=== PATIENT | female | born 1945 | race Caucasian/White ===

== ENCOUNTER → 2016-10-06 | Outpatient (CLI) | payer BC ==
[~2016-10-06] MED LIST: ONDA4TAB65 PO; OXYC-57 PO; PRAV20TA PO
[2016-10-06 11:10] LABS: BASO % 0.2 %; BASO ABS # 0.01 K/uL (0-0.2); COMPLETE YES; EOS % 0.4 %; HEMATOCRIT 47.3 % (37-47); LYMPH % 25.8 %; LYMPH ABS # 1.32 K/uL (1.2-3.4); MEAN CELL VOLUME 88.1 fL (80-100); MEAN CORPUSCULAR HEMOGLOBIN 30.4 pg (25-34); MEAN CORPUSCULAR HGB CONC 34.5 g/dl (32-36); MEAN PLATELET VOLUME 9.2 fL (7.4-10.4); MONO % 7.2 %; NEUT % 66.4 %; PLATELET COUNT 228 K/uL (130-400); RED BLOOD COUNT 5.37 M/uL (4.2-5.4); WHITE BLOOD COUNT 5.11 K/uL (4.8-10.8)
--- NOTE | 2016-10-06 11:17 | DIAGNOSTIC IMAGING REPORT ---
CHEST 2 VIEWS ROUTINE CLINICAL HISTORY: Preoperative chest. Nephrolithiasis. COMPARISON STUDY: No previous studies for comparison. FINDINGS: The cardiac and mediastinal contours are normal. There is no evidence of focal pulmonary consolidation. There is no evidence of failure. No pleural effusions are visualized.[ There is minimal basilar linear atelectasis/scarring. IMPRESSION: No active disease in the chest. Electronically signed by: Wilfredo Engle M.D. 10/06/2016 11:15 AM
[2016-10-06 12:08] LABS: BLOOD UREA NITROGEN 10 mg/dl (7-18); BUN/CREATININE RATIO 12.4 (10-20); CALCIUM 9.1 mg/dl (8.5-10.1); CARBON DIOXIDE 26 mmol/L (21-32); CHLORIDE 108 mmol/L (98-107); GLUCOSE 89 mg/dl (70-99); POTASSIUM 4.2 mmol/L (3.5-5.1); SODIUM 142 mmol/L (136-145)
== END | disposition home or self-care (01) ==
LOC: C.CPL 10:37
PROVIDERS: ATTEND Urology
DX: N20.0 Calculus of kidney (principal)

== ENCOUNTER → 2016-10-15 | Day surgery (SDC) | payer BC ==
[2016-10-13 09:17] VITALS: Ht 157.5 cm; Wt 68.2 kg
[~2016-10-15] VITALS: Ht 157.5 cm; Wt 68.2 kg
[~2016-10-15] MED LIST changes: +ATROPINE SULFATE 0.1 MG/ML 5ML SYR IV PRN; +CIPROFLOXACIN 400MG / D5W IV SCH; +DEXAMETHASONE SOD INJ 4 MG/ML VIAL ONE; +EpHEDrine SULFATE INJ 50 MG/ML AMP IV PRN; +FENTANYL CITRATE INJ 50 MCG/1 ML 2 ML VIAL IV PRN; +FENTANYL CITRATE INJ 50 MCG/1 ML 2 ML VIAL ONE; +LACTATED RINGER'S 1000ML 1,000 ML IV SCH; +LIDOCAINE HCL 2% 2 ML VIAL (20MG/ML) ONE; +ONDANSETRON INJ 2 MG/ML 2 ML VIAL IV PRN; +ONDANSETRON INJ 2 MG/ML 2 ML VIAL ONE; +OXYCODONE/ACETAMINOPHEN 5-325 TAB PO PRN; +PROPOFOL IV EMULSION 10 MG/ML 20 ML VIAL IV ONE
--- NOTE | 2016-10-15 11:24 | DIAGNOSTIC IMAGING REPORT ---
[facility] CLINICAL HISTORY: N20.0 Nephrolithiasis COMPARISON STUDY: 11/22/2015 FINDINGS: There is no pathologic bowel dilatation. There are 2 calcifications project over the lower pole the right kidney, the largest of which measures 6 mm in length. There are 2 calcifications project over the right renal pelvis measuring 13 mm in aggregate. There is an equivocal punctate left renal calculus. There are nonspecific pelvic basin calcifications. IMPRESSION: 1. No evidence of pathologic bowel dilatation 2. Right-sided nephrolithiasis with suspected calculi at the level of the right ureteral pelvic junction Electronically signed by: Wilfredo Engle M.D. 10/15/2016 11:22 AM Dictated Date/Time: 10/15/2016 11:20 AM
--- NOTE | 2016-10-15 12:43 | History & Physical Bridge Note ---
H&P Re-Evaluation Bridge Note: I have examined the patient, reviewed the History & Physical and in the interval since the performance of the History & Physical I have noted the following changes of clinical significance: No changes noted
--- NOTE | 2016-10-15 12:55 | Discharge Instructions ---
Discharge Instructions Admission Reason for Admission: Stones Discharge Discharge Diagnosis / Problem: R renal stone s/p ESWL Discharge Goals Goal(s): Decrease discomfort, Improve disease control, Therapeutic intervention Activity Recommendations Activity Limitations: as noted below Lifting Limitations: gradually increase as tolerated Exercise/Sports Limitations: rest today May Resume Sexual Activity: when tolerated Shower/Bathe: no limitations Driving or Machine Use: resume 1 day after discharge . Instructions / Follow-Up Instructions / Follow-Up Strain urine as instructed Follow-up as scheduled in office with [facility] X[facility] before visit Discharge Diet Recommended Diet: Regular Diet (good fluid intake) Procedures Procedures Performed: Right ESWL Pending Studies Studies pending at discharge: no Medical Emergencies . Who to Call and When: Medical Emergencies: If at any time you feel your situation is an emergency, please call 911 immediately. . Non-Emergent Contact Non-Emergency issues call your: Urologist Call Non-Emergent contact if: you have a fever, temperature is above 101, your pain is not controlled, your pain is worsening, your pain is unusual for you, your pain is concerning you, you have any medication questions . . "Provider Documentation" section prepared by Emanuel Antunez. VTE Core Measure Inpt VTE Proph given/why not?: SCD's [place] Drug Monitoring Program Search Results: patient reviewed within database, no issues identified
--- NOTE | 2016-10-15 15:19 | Anesthesia Progress Nt - [facility] ---
Anesthesia Post Op Note Date & Time Oct 15, 2016 at 15:18 Vital Signs Pain Intensity: 0 Vital Signs Past 12 Hours Date Time Temp Pulse Resp B/P Pulse Ox O2 Delivery O2 Flow Rate FiO2 10/15/16 15:09 156/74 10/15/16 15:06 56 13 100 10/15/16 15:06 56 13 10/15/16 15:04 139/73 10/15/16 15:01 37.2 56 16 158/70 100 Mask 10/15/16 15:01 57 7 10/15/16 15:01 56 7 100 10/15/16 11:56 36.5 68 18 152/84 97 Room Air Notes Mental Status: alert / awake / arousable, participated in evaluation Pt Amnestic to Procedure: Yes Nausea / Vomiting: adequately controlled Pain: adequately controlled Airway Patency, RR, SpO2: stable & adequate BP & HR: stable & adequate Hydration State: stable & adequate Anesthetic Complications: no major complications apparent
[2016-10-15 15:23] VITALS: TEMP 36.9
[2016-10-15 15:46] VITALS: BP 172/74; PULSE 56; O2SAT 96
--- NOTE | 2016-10-15 16:09 | [facility] Post Operative Brief Note ---
Immediate Operative Summary Operative Date Oct 15, 2016. Pre-Operative Diagnosis Right renal stone Post-Operative Diagnosis same Procedure(s) Performed Right Extracorporeal Shock Wave Lithotripsy--renal Surgeon Dr Thomas Antunez Senior Data Integration Developer Surgeon(s) 0 Estimated Blood Loss 0 Findings Excellent stone fragmentation on fluoro Specimens 0 Drains NA Anesthesia MAC Complication(s) None Disposition Recovery Room / PACU
--- NOTE | 2016-10-15 19:54 | OPERATIVE REPORT ---
DATE OF OPERATION: 10/15/2016 PREOPERATIVE DIAGNOSIS: Right renal stone. POSTOPERATIVE DIAGNOSIS: Same. PROCEDURE: Right-sided extracorporeal shockwave lithotripsy of renal stone x2. SURGEON: Dr. Emanuel Antunez. WRECKING CRANE ENGINE OPERATOR: None. ANESTHESIA: General anesthesia with laryngeal mask. DRAINS: None. COMPLICATIONS: None. FINDINGS: Excellent fragmentation of both right renal stones on fluoroscopic imaging over the course of the case. SPECIMENS: None. DETAILS OF PROCEDURE: The patient was brought to the litho suite. He was correctly identified and the stone was visualized on his most recent x-rays. After the correct time out was performed the patient was positioned over the therapy head. An adequate level of anesthesia was administered. The extracorporeal shockwave lithotripsy treatment was then commenced. Please see the [facility] sheet for complete treatment summary. After completion of the procedure the patient was taken to the recovery room in stable condition. I attest to the content of the Intraoperative Record and any orders documented therein. Any exceptio ns are noted below.
== END | disposition home or self-care (01) ==
LOC: X.SURG 11:20
PROVIDERS: ATTEND Urology
DX: N20.0 Calculus of kidney (principal); R31.9 Hematuria, unspecified; Z98.890 Other specified postprocedural states; Z90.49 Acquired absence of other specified parts of digestive tract

== ENCOUNTER → 2016-11-02 | Outpatient (CLI) | payer BC ==
[~2016-11-02] MED LIST changes: -ATROPINE SULFATE 0.1 MG/ML 5ML SYR IV PRN; -CIPROFLOXACIN 400MG / D5W IV SCH; -DEXAMETHASONE SOD INJ 4 MG/ML VIAL ONE; -EpHEDrine SULFATE INJ 50 MG/ML AMP IV PRN; -FENTANYL CITRATE INJ 50 MCG/1 ML 2 ML VIAL IV PRN; -FENTANYL CITRATE INJ 50 MCG/1 ML 2 ML VIAL ONE; -LACTATED RINGER'S 1000ML 1,000 ML IV SCH; -LIDOCAINE HCL 2% 2 ML VIAL (20MG/ML) ONE; -ONDANSETRON INJ 2 MG/ML 2 ML VIAL IV PRN; -ONDANSETRON INJ 2 MG/ML 2 ML VIAL ONE; -OXYCODONE/ACETAMINOPHEN 5-325 TAB PO PRN; -PROPOFOL IV EMULSION 10 MG/ML 20 ML VIAL IV ONE
== END | disposition home or self-care (01) ==
LOC: C.LABSPEC 17:18
PROVIDERS: ATTEND Urology
DX: N20.0 Calculus of kidney (principal)

== ENCOUNTER → 2016-11-02 | Outpatient (CLI) | payer BC ==
--- NOTE | 2016-11-02 09:37 | DIAGNOSTIC IMAGING REPORT ---
[facility] CLINICAL HISTORY: N20.0 [id number] nephrocalcinosis COMPARISON STUDY: 10/15/2016 FINDINGS: Interval decrease in size and number of bilateral nephrocalcinosis. Residual calcifications upper pole right kidney are similar. Interval decrease in size and/or resolution of mid to lower pole right renal calcifications. Largest calcification medial aspect right kidney is no longer present overlying the kidney. 2 smaller right renal calcifications lower pole on the right appears similar. There may be a residual calcification and or fragment at the level of the distal right ureter measuring 2 mm. Several pelvic vascular calcifications are similar. IMPRESSION: 1. Improved exam. 2. Largest calcification medial aspect right kidney in the prior study has been fragmented with the bulk of the fragments passed. 3. Residual 2 mm calcification overlying the distal right ureter. 4. Unchanging small calcifications lower pole right kidney Electronically signed by: Geovanni Mead M.D. 11/02/2016 9:36 AM Dictated Date/Time: 11/02/2016 9:34 AM
== END | disposition home or self-care (01) ==
LOC: C.RAD 08:52
PROVIDERS: ATTEND Urology
DX: N20.0 Calculus of kidney (principal); N28.89 Other specified disorders of kidney and ureter

== ENCOUNTER → 2016-12-22 | Outpatient (CLI) | payer BC ==
--- NOTE | 2016-12-22 11:41 | DIAGNOSTIC IMAGING REPORT ---
[facility] HISTORY: N20.0 [id number] COMPARISON: [facility] 11/02/2016. FINDINGS: The bowel gas pattern is unremarkable. There are no dilated loops of small bowel to suggest an obstruction. There is a cluster of small calcifications within the lower pole the right kidney, unchanged. There is single left punctate renal calculus, unchanged. No pneumoperitoneum or pneumatosis. Pelvic base calcifications remain stable and likely represent phleboliths. No ureteral calculi identified. IMPRESSION: 1. Stable bilateral nephrolithiasis. 2. No ureteral calculi identified. Electronically signed by: Jose Cruz Burrell M.D. 12/22/2016 11:39 AM Dictated Date/Time: 12/22/2016 11:37 AM
== END | disposition home or self-care (01) ==
LOC: C.RAD 11:16
PROVIDERS: ATTEND Urology
DX: N20.0 Calculus of kidney (principal)